=== PATIENT | female | born 1985 | race Caucasian/White ===

== ENCOUNTER 2019-01-15 05:09 | Emergency (ER) | payer OTHER, MEDICAID ==
[2019-01-15 05:12] VITALS: BMI 26.9
[2019-01-15 05:24] VITALS: TEMP 97.9
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
[2019-01-15 06:51] VITALS: BP 126/78; PULSE 83; RESP 16; O2SAT 96
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
== END 2019-01-15 06:51 | disposition home or self-care (01) ==
LOC: ED 05:09
DX: S09.90XA Unspecified injury of head, initial encounter (principal); V49.9XXA Car occupant (driver) (passenger) injured in unspecified traffic accident, initial encounter; F17.210 Nicotine dependence, cigarettes, uncomplicated